=== PATIENT | male | born 1975 | race Caucasian/White ===

== ENCOUNTER 2017-01-28 09:03 | Emergency (ER) | payer SELFPAY ==
--- NOTE | ~2017-01-28 | CON ---
PATIENT'S NAME: CATALINA MORALES [facility] AGE: 41 Y [address] ROOM: [place] [id number] LOCATION: [facility] ADMIT DATE: 01/28/2017 Consultation DISCHARGE DATE: FAMILY PHYSICIAN: PHYSICIAN, NO ATTENDING PHYSICIAN: Charo Mendoza REASON FOR CONSULTATION: Intractable nausea, vomiting, and abdominal pain. HISTORY OF PRESENT ILLNESS: This is a 41-year-old male with history of hypertension, moderate obesity, and history of erosive gastritis, presents with 2-week history of nausea, vomiting, and some diarrhea and diffuse abdominal pain. The patient states that he has had a history of similar symptoms and was evaluated by GI about 3 years ago where at that time he had an EGD and appears to have had what sounds like an erosive gastritis and he was put on PPI treatment and was supposed to have a repeat EGD in 2-3 months after that, but was unable to do a followup for that. The patient was seen 2 weeks ago at [facility] after presenting with similar complaints and was managed as gastroenteritis and was discharged. The patient presents here with similar complaints now today. CT scan of the abdomen showed some signs of diffuse, possible colitis but unremarkable otherwise. The patient is an active smoker and had a blood alcohol level of 0.09. The patient, otherwise, denies any chest pain, shortness of breath, dizziness, lightheadedness, any fever or chills. PAST MEDICAL HISTORY: Hypertension and moderate obesity. FAMILY HISTORY: History of heart disease in both parents. SOCIAL HISTORY: The patient smokes a pack a day and is a drinker as well. Denies illicit drug use. REVIEW OF SYSTEMS: All systems were reviewed and were negative except as described in the HPI. PHYSICAL EXAMINATION: VITAL SIGNS: Afebrile, vital signs stable. GENERAL: The patient is awake, alert, oriented x3, in no acute distress. HEENT: Moist mucous membranes. No scleral icterus. Conjunctival pallor noted. SKIN: Without rash or lesions. CHEST: Clear to auscultation bilaterally. HEART: S1, S2. Regular rate and rhythm. PATIENT'S NAME: CATALINA MORALES [facility] AGE: 41 Y [address] ROOM: [place] [address] LOCATION: [facility] ADMIT DATE: 01/28/2017 Consultation DISCHARGE DATE: FAMILY PHYSICIAN: PHYSICIAN, NO ATTENDING PHYSICIAN: Charo Mendoza ABDOMEN: Soft. Mild tenderness diffusely but nondistended. Positive bowel sounds. NEUROLOGIC: Grossly nonfocal. MUSCULOSKELETAL: No joint effusions, swelling, or tenderness noted. ASSESSMENT AND PLAN: 1. Nausea, vomiting, and abdominal pain. CT scan mostly unremarkable except there maybe some colonic thickening suggesting colitis. The patient was initially evaluated for admission but after speaking to the patient, the patient would now like to see GI as an outpatient. I have talked to Dr. Cerna who is on-call for GI and he is going to try to get the patient to have an earlier appointment at [place] with Dr. Zavala and the patient is to call GI service on Monday to set this up. In the meantime, the patient is to be discharged with b.i.d. PPI, b.i.d. Carafate, and Levaquin 500 mg daily for 5 days for signs of colitis suggested on CT. He will follow up with GI Clinic as soon as possible. 2. Essential hypertension. The patient is to continue with blood pressure medication. MD CLAIRE HIRSCH/sara /[id number] d: 01/28/17 1613 t: 01/29/171999, CONSULTATION REPORT
--- NOTE | ~2017-01-28 | ER ---
PATIENT'S NAME: CATALINA MORALES [facility] AGE: 41 Y [address] ROOM: [place] [address] LOCATION: ED ADMIT DATE: 01/28/2017 ER/Outpatient Report DISCHARGE DATE: FAMILY PHYSICIAN: PHYSICIAN, NO ATTENDING PHYSICIAN: Charo Mendoza Time of Arrival: 0903 hours. Time of Evaluation/Seen: 0942 hours. IDENTIFICATION: A 41-year-old male. CHIEF COMPLAINT: Abdominal pain. HISTORY OF PRESENT ILLNESS: The patient presents complaining of abdominal pain and bloating, nausea and vomiting, and feels "dry and dizzy, heart racing." He perseverates on the fact that he just cannot deal with this any more. He was at [facility] two weeks ago, had a normal evaluation in the emergency room, and is scheduled for February 10 with the playground supervisor, but he states he just cannot wait until then. Eighteen months ago, he had an endoscopy which must have showed some gastritis or something. He is supposed to follow up after two months of omeprazole and have a repeat test which he did not follow up. The last month, he has lost 10 pounds. He had that evaluation at [facility] and states "they did not find anything." He feels weak and tired, not eating very much. He has had blood in his stools intermittently, yesterday he had some. He says stools are either black or "blotches of blood." He has had soft stools 20 to 30 times a day, small amount. He has had nausea and vomiting intermittently. He is drinking two glasses of whiskey "sipping" on them throughout the day because he states that makes him feel better. PAST MEDICAL HISTORY: ALLERGIES: NO KNOWN DRUG ALLERGIES. CURRENT MEDICATIONS: 1. Lisinopril 40 mg daily. 2. Omeprazole daily. MEDICAL PROBLEMS: Hypertension. PAST SURGICAL HISTORY: PATIENT'S NAME: CATALINA MORALES [facility] AGE: 41 Y [address] ROOM: [place] [address] LOCATION: [facility] ADMIT DATE: 01/28/2017 ER/Outpatient Report DISCHARGE DATE: FAMILY PHYSICIAN: PHYSICIAN, NO ATTENDING PHYSICIAN: Charo Mendoza Prior Surgeries: 1. Endoscopy. 2. Hand surgery. 3. Back surgery. 4. Shoulder surgery. SOCIAL HISTORY: The patient is self-employed in a lot of landscape. Tobacco use, 3/4 pack per day. Alcohol use, daily. Whiskey equivalent to two shots per day. Drug use, denies. FAMILY HISTORY: No pertinent family history identified. REVIEW OF SYSTEMS: All systems were reviewed and negative other than what is noted in the HPI. PHYSICAL EXAMINATION: VITAL SIGNS: Weight 105.2 kg. Blood pressure 174/105, pulse 119, respiratory rate is 20, temperature 97.0, and sats 97% on room air. GENERAL: A 41-year-old male. In moderate distress. HEENT: Head; normocephalic and atraumatic. Ears; TMs translucent in both ears. Eyes; pupils equal and reactive to light and accommodation. Extraocular movements intact. Nose; mucosa pink. No lesions or drainage. Mouth; no lesions. Pharynx, benign. NECK: Supple. No lymphadenopathy. LUNGS: Clear to auscultation. HEART: Regular rate and rhythm. ABDOMEN: Soft, nondistended, and diffusely tender to palpation. No rebound or guarding. SKIN: [place], warm, and dry. No lesions or rashes noted. NEUROLOGIC: No focal deficit. No lower extremity edema. LABORATORY DATA AND IMAGING STUDIES: Sodium 139, potassium 3.5, chloride 105, CO2 of 23, BUN 14, creatinine 0.9, and blood sugar 120. Liver enzymes are elevated, AST 232, and ALT 120. AST was 65 on January 14 at [facility], ALT was 82. Lipase 207, amylase 20. Lipase was 43 at [facility] on January 14. C. difficile, negative. Occult blood positive, moderate white blood cells. Drug screen positive for opiates. He said he had 1 [place] throughout the night last night. O and P screen, negative. Culture and sensitivity, pending. Urine, negative. H. pylori, negative. Hemoglobin 16.8 which is stable, 45.4 of hematocrit, platelets 203,000, and white count 7.3 with normal differential. Alcohol 0.097. Three-way abdomen, no free air. No obstruction. Lungs are clear. Pending Radiology over-read. CT abdomen and pelvis without IV but with oral contrast shows mild bowel wall thickening PATIENT'S NAME: CATALINA MORALES Alexandre [facility] AGE: 41 Y [address] ROOM: [place] [address] LOCATION: [facility] ADMIT DATE: 01/28/2017 ER/Outpatient Report DISCHARGE DATE: FAMILY PHYSICIAN: PHYSICIAN, LEANNA ATTENDING PHYSICIAN: Charo Mendoza consistent with colitis, marked fatty infiltration of the liver. IMPRESSION: Chronic abdominal pain, nausea, vomiting, and diarrhea. PLAN: 1. The patient is very frustrated and does not feel that he can wait until his appointment on the . We did give him IV fluids, Zofran here, and IV Protonix. Dr. Hardwick evaluated the patient in the emergency room and discussed the case with Dr. Cerna. The patient will be discharged and have an outpatient GI consult. He will contact Dr. Cerna's office. He will be placed for the impression. a. Colitis, Levaquin 500 mg orally x5 days. b. Gastritis, increase omeprazole to 40 mg b.i.d. Carafate 1 g b.i.d. Zofran p.r.n. nausea. Diet as tolerated. No alcohol. MD DWIGHT ELLISON/sara /[id number] d: 01/28/171913 t: 02/06/17 0757, OUTPATIENT REPORT
[~2017-01-28 09:03] MED LIST: ALEVE220 MG PO; AUGMENTIN 875-1 EACH PO; PRINIVIL (ZESTR20 MG PO; PROTONIX40 M1 PO
[2017-01-28 10:09] LABS: BASOPHIL # 0.1 K/uL (0.0-0.2); BASOPHIL % 0.7 %; EOSINOPHIL % 0.4 %; HEMATOCRIT 45.4 % (37.0-53.0); HEMOGLOBIN 16.8 g/dL (12.0-17.0); IMMATURE GRANULOCYTE % 0.4 %; LYMPHOCYTE # 1.5 K/uL (0.8-4.0); LYMPHOCYTE % 20.7 %; MCH 33.4 pg (27.0-34.0); MCV 90.3 fl (83.0-98.0); MONOCYTE # 0.5 K/uL (0.0-1.0); MONOCYTE % 6.3 %; MPV 8.6 fl (9.4-12.4); NEUTROPHIL # (ANC) 5.2 K/uL (1.4-9.0); NEUTROPHIL % 71.5 %; NRBC % 0 /100WBC (0-0.00); PLATELET COUNT 203 K/uL (150-450); RBC 5.03 M/uL (4.00-6.00); RDW-CV 11.9 % (11.9-14.6); WBC 7.3 K/uL (4.0-11.0)
[2017-01-28 10:27] LABS: ALK PHOS 103 IU/L (33-138); ANION GAP 14.5 (10.0-19.0); BLOOD UREA NITROGEN 14 mg/dL (6-24); CALCIUM 8.3 mg/dL (8.5-10.5); CHLORIDE 105 mMol/L (96-110); CO2 23 mMol/L (22-32); CREATININE 0.9 mg/dL (0.6-1.3); SODIUM 139 mMol/L (135-145); TOTAL BILIRUBIN 0.6 mg/dL (0.0-1.5); TOTAL PROTEIN 6.8 g/dL (6.0-8.4)
[2017-01-28 10:29] LABS: POTASSIUM 3.5 mMol/L (3.7-5.1)
[2017-01-28 10:38] LABS: ALT 120 IU/L (12-78)
[2017-01-28 10:39] LABS: AST 232 IU/L (10-40)
[2017-01-28 11:15] LABS: BILIRUBIN URINE NEGATIVE (NEGATIVE); BLOOD URINE 10 /UL (NEGATIVE); GLUCOSE URINE NEGATIVE (NEGATIVE); KETONE URINE 5 mg/dL (NEGATIVE); LEUKOCYTES URINE 25 /UL (NEGATIVE); NITRITE URINE NEGATIVE (NEGATIVE); PROTEIN URINE 30 mg/dL (NEGATIVE); TURBIDITY URINE CLEAR (CLEAR); UROBILINOGEN URINE 1 mg/dL (NORMAL)
[2017-01-28 11:23] LABS: COLOR URINE AMBER (YELLOW)
[2017-01-28 11:30] LABS: BACTERIA URINE NEGATIVE (NEGATIVE); EPITHELIAL URINE RARE #/HPF (NEGATIVE); MUCUS URINE 1+ (NEGATIVE); RBC URINE RARE #/HPF (NEGATIVE); WBC URINE RARE #/HPF (NEGATIVE)
[2017-01-28 11:41] LABS: BARBITURATE NEGATIVE (NEGATIVE); COCAINE NEGATIVE (NEGATIVE)
[2017-01-28 11:50] LABS: AMPHETAMINE NEGATIVE (NEGATIVE); OPIATES POSITIVE (NEGATIVE)
== END 2017-01-28 14:54 | disposition disaster alternative care site (69) ==
LOC: GMED 09:03 → GMSU 13:27 → GMED 14:54
PROVIDERS: Family Medicine
DX: K52.9 Noninfective gastroenteritis and colitis, unspecified (principal); K29.70 Gastritis, unspecified, without bleeding; R11.2 Nausea with vomiting, unspecified; R19.7 Diarrhea, unspecified; I10 Essential (primary) hypertension; F17.210 Nicotine dependence, cigarettes, uncomplicated; Z98.890 Other specified postprocedural states; Z79.899 Other long term (current) drug therapy
CPT/HCPCS: C9113; G0480; J2405; J7030; Q9967